=== PATIENT | female | born 1990 | race Caucasian/White ===

== ENCOUNTER 2017-02-02 16:53 | Emergency (ER) | payer MEDICAID ==
[~2017-02-02] VITALS: Ht 172.7 cm; Wt 59.1 kg
[2017-02-02 17:40] VITALS: BP 109/75
[2017-02-02] MEDS ORDERED: HYDROmorphone 1 MG/ML, 1ML IM ONE (19:30)
[2017-02-02] MEDS ORDERED: KETOROLAC 30 MG/1 ML IM ONE (19:30)
[2017-02-02] MEDS ORDERED: KETOROLAC 30 MG/1 ML ONE (19:40)
[2017-02-02] MEDS ORDERED: HYDROmorphone 2 MG/ML, 1ML ONE (19:40)
== END 2017-02-02 20:18 | disposition home or self-care (01) ==
LOC: ED 19:00
DX: G89.29 Other chronic pain (principal); M79.652 Pain in left thigh; M79.662 Pain in left lower leg
CPT/HCPCS: 93971; 96372; 99284; J1170; J1885